=== PATIENT | female | born 1980 | race Caucasian/White ===

== ENCOUNTER 2018-05-06 15:39 | Emergency (ER) | payer OTHER ==
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
[2018-05-06 17:37] VITALS: BP 133/96
== END 2018-05-06 17:35 | disposition home or self-care (01) ==
LOC: ER 15:39
DX: R53.1 Weakness (principal); S40.021A Contusion of right upper arm, initial encounter; S10.91XA Abrasion of unspecified part of neck, initial encounter; W19.XXXA Unspecified fall, initial encounter; R11.0 Nausea; R19.7 Diarrhea, unspecified; R41.3 Other amnesia
CPT/HCPCS: 99284

== ENCOUNTER → 2018-07-27 | Outpatient (CLI) | payer OTHER ==
[2018-07-27 13:10] LABS: BACTERIA (WET MOUNT) 4+ BACTERIA SEEN; EPITHELIALS (WET MOUNT) 4+ EPITHELIALS SEEN; T.VAGINALIS (WET MOUNT) NO TRICHOMONAS SEEN; WBCS (WET MOUNT) 1+ WBCS SEEN; YEAST (WET MOUNT) NO YEAST SEEN
[2018-07-27 14:51] LABS: CHLAM PCR NOT DETECTED (NOT DETECT)
[2018-07-27 14:52] LABS: GON PCR NOT DETECTED (NOT DETECT)
== END ==
LOC: LAB 13:01
PROVIDERS: ATTEND Nurse Practitioner Family
DX: R30.0 Dysuria (principal); N89.8 Other specified noninflammatory disorders of vagina
CPT/HCPCS: 87086; 87088; 87186; 87210; 87491; 87591